=== PATIENT | female | born 1990 ===

== ENCOUNTER 2017-01-19 01:55 | Inpatient (IN) | payer OTHER ==
[2017-01-19 02:42] VITALS: BMI 29.5
[2017-01-19] MEDS ORDERED: Penicillin G 5 Million Unit Vial IVPB ONE (02:42)
[2017-01-19] MEDS ORDERED: Lactated Ringer's 1,000 ML IV SCH (02:45)
[2017-01-19 03:14] LABS: BASO % 0.3 % (0.0-2.0); HEMATOCRIT 38.7 % (34.0-47.0); LYMPH # 1.3 K/uL (1.0-4.3); LYMPH % 9.1 % (20.0-40.0); MEAN CELL VOLUME 86.8 fL (81.0-99.0); MEAN CORPUSCULAR HGB CONC 32.3 g/dL (33.0-37.0); MEAN PLATELET VOLUME 9.6 fL (7.2-11.7); MONO # 0.6 K/uL (0.0-0.8); PLATELET COUNT 204 K/uL (130-400); RED CELL DISTRIBUTION WIDTH 14.5 % (11.5-14.5); WHITE BLOOD COUNT 14.2 K/uL (4.8-10.8)
--- NOTE | 2017-01-19 03:17 | OBHP ---
Datetime: 01/19/2017 03:02 IP Adm Impression: Term, intrauterine ; Active labor; Intact Membranes IP Adm Impression Other: GBS (+); IP Admit Plan: Admit to unit; Initiate labor protocol Admit Comment, IP Provider: Patient seen and evaluated at approximately 0240 hours 26 y.o . LMP unsure, PARMJIT 01/20/17, EGA 39w 6d, c/o ctx - onset 01/18/17 1800 hours; stronger at midnight, and at 0100 hours occurring every 2 minutes, pain scale 6/10. Denies LOF; (+) blood-tinged mucous at 0100 hours. care: [facility] - total of 9 visits; missed 5. Last visit 2 weeks ago; yadi rodriguez apointment for 01/19/17. Denies issues P Ob: Primip P PATIENT SUPPORT SPECIALIST: 11 x 28 x 3. Denies STIs PMH: denies PSH: denies NKDA Meds: PNV Soc Hx: denies illicit drug , tobacco or EtOH use. Lives with her mother. With FOB x 7 years. Fam Hx: Mother alive 48 y.o. Father alive 58 y.o. - both, no med issues. No fam h/o cancer P.E.: as above. Petite, in pain with contractions. Awake, alert, oriented to time, person and plac e. Pleasant and cooperative. FOB present Assessment: 26 yo P0, 39w 6d, near end of stage 1 of labor. GBS (+). Category 1 tracing. Clinicall y stable. Plan: 1) Admit 2) NPO 3) IVFs 4) Continuous EFM 5) Admission labs 6) Penicillin 7) Anticipate vaginal delivery Pelvic Type - PN: Adequate Extremities - PN: Normal Abdomen - PN: Normal Back - PN: Normal Breast - PN: Not Done Lungs - PN: Normal Heart - PN: Normal Thyroid - PN: Not Done Neurologic - PN: Normal HEENT - PN: Normal General - PN: Normal Weight - Estimated: 3000 Presentation-Admit: Vertex FHR - Baseline A Provider: 145 Contraction Comments Provider: 1-3 Comments, ACOG Physical Exam: Abdomen: gravid. Firm with contractions All other systems reviewed and are negative Gestation - Est Wks by US: 39w 6d IP Hx Assessment: The History has been Reviewed and is Current EGA AdmitDate IP: 39.6 Vital Signs Provider: Reviewed IP Indication for Induction: Not Applicable IP Chief Complaint: Uterine contractions NICHD Variability Prov Fetus A: Moderate 6-25bpm NICHD Accel Fetus A IP Provider: [id number] FHR Category Provider Fetus A: Category I NICHD Decel Fetus A IP Provider: None Dilatation, Provider: 9 Effacement, Provider: 100 Station, Provider: 0 Genitourinary Exam: Normal DTRs - PN: Not Done
[2017-01-19 03:23] LABS: CHLORIDE 101 mmol/L (98-107); POTASSIUM 3.7 mmol/L (3.6-5.2); SODIUM 134 mmol/L (132-148)
[2017-01-19 03:25] LABS: GFR AFRICAN-AMERICAN > 60
[2017-01-19 03:26] LABS: ALB/GLOB RATIO 0.9 (1.0-2.1); ALKALINE PHOSPHATASE 195 U/L (38-126); ALT/SGPT 42 U/L (9-52); AST/SGOT 27 U/L (14-36); BILIRUBIN,TOTAL 0.4 mg/dL (0.2-1.3); BLOOD UREA NITROGEN 11 mg/dL (7-17); CARBON DIOXIDE 22 mmol/L (22-30); GLUCOSE,RANDOM 103 mg/dL (65-105); TOTAL PROTEIN 6.9 g/dL (6.3-8.3)
[2017-01-19 03:27] LABS: CALCIUM 8.9 mg/dl (8.6-10.4)
[2017-01-19 04:00] LABS: NEUTROPHIL 93 % (50-75); TOTAL CELLS COUNTED 100
[2017-01-19] MEDS ORDERED: Penicillin G Potassium 2.5 MU in Dextrose 5% In Water 50 ML IV SCH (07:00)
[2017-01-19 07:10] LABS: RBC URINE 1 /hpf (0-3); URINE BILIRUBIN NEGATIVE (NEGATIVE); URINE BLOOD NEGATIVE (NEGATIVE); URINE COLOR Yellow (YELLOW); URINE GLUCOSE (UA) NORMAL (Normal); URINE KETONE TRACE mg/dL (NEGATIVE); URINE LEUKOCYTE ESTERASE NEG Leu/uL (Negative); URINE PROTEIN NEGATIVE (NEGATIVE); URINE UROBILINOGEN NORMAL mg/dL (0.2-1.0); WBC URINE < 1 /hpf (0-5)
[2017-01-19] MEDS ORDERED: Lidocaine 2% Inj (20ml) ONE (07:12)
[2017-01-19] MEDS ORDERED: Oxycodone/Acetaminophen 5/325 mg Tab PO PRN (08:51)
[2017-01-19] MEDS ORDERED: Benzocaine/Menthol 20%-0.5% Topical Spray (60 ml) TOP PRN (08:51)
--- NOTE | 2017-01-19 14:03 | OBDS ---
DELIVERY PERSONNEL Delivery Doctor: Jason Rebollar MD Scrub Nurse: Aga Huber Research Program Manager: Yuko Zazueta RN MATERNAL INFORMATION Delivery Anesthesia: Local Medications in Delivery: Pitocin Estimated Blood Loss (ml): 300 Placenta Cultured: No Maternal Complications: None RN Comments: to a live baby girl to mother's abdomen. Baby attended to by Braden Chandler. 9: 9, stable. Provider Comments: baby deliverd in margarette. rml made and reaired. end clean no com LABOR SUMMARY EDC: 01/20/2017 00:00 No. Babies in Womb: 1 Attempted: No Labor Anesthesia: None LABOR INFORMATION Onset of Labor: 01/18/2017 18:00 Oxytocin: N/A Group B Beta Strep: Positive Antibiotics # of Doses: 2 Antibiotics Time of Last Dose: 0640 Steroids Given: None Reason Steroids Not Administered: Not Applicable MEMBRANES Membranes Rupture Method: Spontaneous Rupture of Membranes: 01/19/2017 06:15 Length of Rupture (hrs): 1.03 Amniotic Fluid Color: Clear Amniotic Fluid Amount: Moderate STAGES OF LABOR Stage 3 hrs: 0 Stage 3 min: 3 Total Time in Labor hrs: 13 Total Time in Labor min: 20 VAGINAL DELIVERY Episiotomy: Right Mediolateral Laceration Extension: N/A Laceration Type: None Laceration Repair: Not Applicable Initial Vag Sponge Count: 10 Final Vag Sponge Count: 10 Initial Vag Sharps Count: 2 Final Vag Sharps Count: 2 Sharps Count Correct: Yes BABY A INFORMATION Infant Delivery Date/Time: 01/19/2017 07:17 Method of Delivery: Vaginal Born in Route : No : N/A Forceps: N/A Vacuum Extraction: N/A Shoulder Dystocia : No SHOULDER DYSTOCIA BABY A Delivery Date/Time: 01/19/2017 07:17 PRESENTATION/POSITION BABY A Presentation: Cephalic Cephalic Presentation: Vertex Vertex Position: Left Occipital Anterior Breech Presentation: N/A PLACENTA INFORMATION BABY A Placenta Delivery Time : 01/19/2017 07:20 Placenta Method of Delivery: Spontaneous Placenta Status: Delivered SCORES BABY A Heart Rate 1 min: >100 bpm Resp Effort 1 min: Good Cry Reflex Irritability 1 min: Cough or Sneeze or Pulls Away Muscle Tone 1 min: Active Motion Color 1 min: Body [place], Extremities Blue Resuscitation Effort 1 min: Tactile Stimulation SCORE 1 MIN: 9 Heart Rate 5 min: >100 bpm Resp Effort 5 min: Good Cry Reflex Irritability 5 min: Cough or Sneeze or Pulls Away Muscle Tone 5 min: Active Motion Color 5 min: Body [place], Extremities Blue SCORE 5 MIN: 9 INFORMATION BABY A Gestational Age at Delivery: 39.6 Gestational Status: Term Infant Outcome : Liveborn Condition : Stable Sex: Female IDENTIFICATION/MEDS BABY A ID Band Number: [id number] ID Band Location: Left Leg; Left Arm Sensor Applied: Yes Sensor Number: [id number] Sensor Location : Cord Clamp Vitamin K Given : Not Given Erythromycin Given: Not Given WEIGHT/LENGTH BABY A Birthweight (gms): 3220 Weight (lb): 7 Infant Weight (oz): 2 Length Inches: 19.00 Infant Length cms: 48.3 CORD INFORMATION BABY A No. Cord Vessels: 3 Nuchal Cord : Around Neck x1, Loose True Knot: 0 Cord Blood Taken: Yes Banking/Donate Info: n/a Suction: Mouth; Nose ASSESSMENT BABY A Infant Complications: None Physical Findings at Delivery: Within Normal Limits Respirations: Appears Normal [employer] Shop Supervisor/ALS Called : No Infant Care By: Gab Transferred To: Remains with Mother
[2017-01-20 06:38] LABS: HEMATOCRIT 35.6 % (34.0-47.0); MEAN CELL VOLUME 88.1 fL (81.0-99.0); MEAN CORPUSCULAR HEMOGLOBIN 28.3 pg (27.0-31.0); MEAN CORPUSCULAR HGB CONC 32.1 g/dL (33.0-37.0); MEAN PLATELET VOLUME 9.9 fL (7.2-11.7); RED CELL DISTRIBUTION WIDTH 15.2 % (11.5-14.5); WHITE BLOOD COUNT 15.5 K/uL (4.8-10.8)
--- NOTE | 2017-01-20 08:41 | OBPPN ---
Datetime: 01/20/2017 08:37 PP Pain Prov: Within normal limits PP Nausea Prov: Denies PP Flatus Prov: Yes PP Breasts Prov: Normal PP Heart Prov: Normal PP Lungs Prov: Normal PP Abdomen/Uterus Prov: Normal PP Lochia Prov: Normal PP Vulva/Perineum Prov: Normal PP CVA Tenderness Prov: Normal PP Extremities Prov: Normal PP Progress Prov: Normal PP Comments Phys Exam Prov: Abd: Soft,NT,BS- present UT- firm and NT PP Impression Prov: Normal progression PP Plan Prov: Continue present management PP Progress Note Prov: S/P , PPD #1 Clinically stable. Plan: COntinue care. Vital Signs Provider PP: Reviewed
--- NOTE | 2017-01-21 07:25 | OBPPN ---
Datetime: 01/21/2017 07:21 PP Pain Prov: Within normal limits PP Nausea Prov: Denies PP Flatus Prov: Yes PP Breasts Prov: Normal PP Heart Prov: Normal PP Lungs Prov: Normal PP Abdomen/Uterus Prov: Normal PP Lochia Prov: Normal PP Vulva/Perineum Prov: Normal PP CVA Tenderness Prov: Normal PP Extremities Prov: Normal PP Progress Prov: Normal PP Comments Phys Exam Prov: Abd: Soft, Nt, BS- present UT- firm PP Impression Prov: Normal progression PP Plan Prov: Discharge PP Progress Note Prov: S/P , PPD#2 Clinically Stable. Plan: D/C Home Vital Signs Provider PP: Reviewed
--- NOTE | 2017-01-21 07:27 | OBDCSUM ---
Datetime: 01/21/2017 07:22 Discharged to, Provider: Home Follow up at, Provider: [facility] Disch Instr Activity: Normal activity Disch Instr Diet: Regular Discharge Instructions, Provider: Routine instructions given Discharge Diagnosis, Provider: Term Delivered Discharge Time: 01/22/2017 07:22 Follow up in weeks, Provider: 6 weeks Disch Referrals: None Contraception discussed, Prov: Yes Discharge Comment, Provider: S/P Uncomplicated , Clinically Stable. Discharge Diagnosis Prov Other: S/P Uncomplicated , Clinically Stable.
[2017-01-21 10:42] VITALS: BP 104/69; PULSE 87; RESP 18; TEMP 97.3; O2SAT 100
== END 2017-01-21 11:05 | disposition home or self-care (01) | DRG 373 ==
LOC: C.EROB 01:55 → C.4D 02:45 → C.4M 09:08
PROVIDERS: ADMIT Obstetrics & Gynecology; ATTEND Obstetrics & Gynecology
PROC: 10E0XZZ Delivery of Products of Conception, External Approach (ICD-10-PCS; principal; 2017-01-19)
PROC: 0W8NXZZ Division of Female Perineum, External Approach (ICD-10-PCS; 2017-01-19)
DX: O69.81X0 Labor and delivery complicated by cord around neck, without compression, not applicable or unspecified (principal); O99.824 Streptococcus B carrier state complicating childbirth; Z3A.39 39 weeks gestation of pregnancy; Z37.0 Single live birth